=== PATIENT | female | born 1980 | race Caucasian/White ===

== ENCOUNTER 2016-10-04 17:09 | Emergency (ER) | payer OTHER ==
[~2016-10-04] VITALS: Ht 167.6 cm; Wt 80.7 kg
[~2016-10-04 17:09] MED LIST: AUGMENTIN 875 M1 TAB PO; DIFLUCAN150 MG PO
[2016-10-04] MEDS ORDERED: FLORASTOR250 M1 PO (17:56)
[2016-10-04] MEDS ORDERED: CYANOCOBAL1000 MCG/2 IM (17:56)
[2016-10-04] MEDS ORDERED: HUMIRA PEN40 MG/0.8 SC (17:56)
--- NOTE | 2016-10-04 17:56 | ED GENERAL ADULT ---
History of Present Illness General Chief Complaint: Palpitations Stated Complaint: HEARTS RACING, PALPITATIONS Source: patient, old records Exam Limitations: no limitations Vital Signs & Intake/Output Vital Signs & Intake/Output Vital Signs Date Time Temp Pulse Resp B/P Pulse O2 O2 Flow FiO2 Ox Delivery Rate 10/04 2016 98.6 76 18 117/65 99 Room Air 10/04 1755 Room Air 10/04 1722 98.3 94 18 125/86 99 Room Air Allergies Coded Allergies: animal dander (CHEST TIGHTNESS, DYSPNEA, EYES SWELL 10/04/16) Reconcile Medications Adalimumab (Humira Pen) 40 MG/0.8 ML PEN.IJ.KIT 1 SYR SC Q2W CROHNS (Reported ) Alprazolam 0.5 MG TABLET 0.5 TAB PO PRN ANXIETY (Reported) Cholecalciferol (Vitamin D3) (Vitamin D) 2,000 UNIT CAPSULE 1 CAP PO DAILY SUPPLEMENT (Reported) Cyanocobalamin (Vitamin B-12) (Cyanocobalamin Injection) 1,000 MCG/ML VIAL 1 ML IM Q30D SUPPLEMENT (Reported) Montelukast Sodium 10 MG TABLET 1 TAB PO DAILY ALLERGIES (Reported) Ondansetron (Zofran Odt) 4 MG TAB.RAPDIS 1 TAB SL Q8H PRN N/V (Reported) Saccharomyces Boulardii (Florastor) 250 MG CAPSULE 1 CAP PO DAILY PROBIOTIC ( Reported) Triage Note: PT TO TRIAGE WITH C/O PALPITATIONS, DIZZINESS, AND SHAKINESS STARTED 1HR STEEPLECHASE JOCKEY, ALSO PT C/O BURNING TO HER MIDDLE BACK. HX ANXIETY AND CROHN'S. PT TOOK ZANAX WHEN PALPITATIONS STARTED WITH NO RELIF. [facility]. Triage Nurses Notes Reviewed? yes Onset: Gradual Duration: day(s): (1) Timing: recent history Injury Environment: home Severity: moderate No Modifying Factors: none : No Patient currently breastfeeds: No HPI: Patient is a 36 chills female with history of anxiety, palpitations and Crohn's presenting to the emergency department should complaining of palpitations worsening over the past couple hours. She reports that she's had a full cardiac workup in the past for her palpitations and everything comes back negative. She did go out drinking alcohol last night and she does report that this triggers her palpitations. She felt fine this morning and only started later this afternoon. Denies any fevers or chills. No chest pain. She does report diffuse abdominal cramping which is normal for her Crohn's. Denies excessive abdominal pain or diarrhea outside of her normal pain with Crohn's. She takes Humira daily. Denies control use, recent travel or lower extremity pain or edema. Nothing seems to make symptoms better or worse. She does report that she's been eating and drinking okay without difficulty today but feels dehydrated. (YAIMA HUNTER) Past History Travel History Traveled to [place] past 21 day No Medical History Any Pertinent Medical History? see below for history Respiratory: asthma Gastrointestinal: Crohn's disease Psychiatric: anxiety Surgical History Surgical History: non-contributory Psychosocial History What is your primary language Portuguese Tobacco Use: Current Not Daily ETOH Use: occasional use Illicit Drug Use: denies illicit drug use Family History Hx Contributory? No (YAIMA HUNTER) Review of Systems Review of Systems Constitutional: Reports: no symptoms. Comments Review of systems: See HPI, All other systems negative. Constitutional, no chills fever or weight loss HEENT: No visual changes no sore throat no congestion Cardiovascular: No chest pain , orthopnea or ankle swelling Skin, no jaundice no rashes Respiratory: No dyspnea cough sputum or hemoptysis GI: No nausea no vomiting : No dysuria No hematuria Muscle skeletal: no back pain, no neck pain, Neurologic: No numbness no confusion Psych: NO INCREASED STRESS/ANXIETY Immunology: No splenectomy or history of AIDS (YAIMA HUNTER) Physical Exam Physical Exam General Appearance: well developed/nourished, no apparent distress, alert, awake , comfortable Comments: Well-developed well-nourished person in no acute distress HEENT: Pupils equally round and reactive to light and accommodation. Nose is atraumatic. External auditory canal and Tympanic membranes clear. Pharynx normal. No swelling or edema. Neck: Supple, no lymphadenopathy, normal range of motion without pain or tenderness Back: Nontender Cardiovascular: Regular rate and rhythms no murmurs rubs or gallops, normal JVP Respiratory: Chest nontender. No respiratory distress.breath sounds clear to auscultation bilaterally Abdomen: Soft, DIFFSUE TENDERNESS TO PALPATION, nondistended, no appreciable organomegaly. Normal bowel sounds. No ascites, NO REBOUND OR GAURDING. Extremity: No edema, no calf tenderness to palpation, normal and equal pulses. Neuro: Alert oriented x3 Skin: No appreciable rash on exposed skin, skin is warm and dry. Psych: Mood and affect is normal, memory and judgment is normal. Core Measures ACS in differential dx? No CVA/TIA Diagnosis: No Severe Sepsis Present: No Septic Shock Present: No (BERTIN MOTA,YAIMA) Progress Differential Diagnoses I considered the following diagnoses in my evaluation of the patient: Dehydration, electrolyte abnormality, anxiety, thyroid dysfunction,PE, ACS Plan of Care: Orders Procedure Date/time Status Add-on Test (ER Only) 10/04 2004 Active Telemetry/Putty Remover 10/04 1810 Active URINE 10/04 1810 Complete URINALYSIS 10/04 1810 Complete TSH REFLEX 10/04 1810 Complete TROPONIN LEVEL 10/04 1810 Complete ETHANOL 10/04 1810 Complete COMPREHENSIVE METABOLIC PANEL 10/04 1810 Complete CBC WITHOUT DIFFERENTIAL 10/04 1810 Complete EKG 10/04 171 Active Laboratory Tests 10/04/161999: Urine Color YEL, Urine Clarity CLEAR, Urine pH 7.0, Ur Specific [place] 1.020, Urine Protein NEG, Urine Ketones NEG, Urine Nitrite NEG, Urine Bilirubin NEG, Urine Urobilinogen 0.2, Ur Leukocyte Esterase NEG, Ur Microscopic EXAM NOT REQUIRED, Urine Hemoglobin NEG, Urine Glucose NEG, Urine Test NEGATIVE 10/04/16 1847: Anion Gap 10, Estimated GFR > 60, BUN/Creatinine Ratio 12.5, Glucose 86, Calcium 9.4, Total Bilirubin 0.4, AST 14, ALT 23, Alkaline Phosphatase 54, Troponin I < 0.01, Total Protein 7.4, Albumin 4.1, Globulin 3.3, Albumin/Globulin Ratio 1.2, TSH &T3 &Free T4 Intrp 1.230, CBC w Diff NO MAN DIFF REQ, RBC 4.08 L, MCV 86.8, MCH 29.6, RDW 13.3, MPV 9.5, Gran % 63.3, Lymphocytes % 23.2, Monocytes % 9.4 H , Eosinophils % 3.5, Basophils % 0.6, Absolute Granulocytes 5.7, Absolute Lymphocytes 2.1, Absolute Monocytes 0.9 H, Absolute Eosinophils 0.3, Absolute Basophils 0.1, PUBS MCHC 34.1, Serum Alcohol < 10.0 Initial ED EKG: NSR (92) Prior EKG: unchanged Rhythm Strip: normal sinus rhythm Comments: 10/04/2016 6:19:46 PM arrival EKG is normal sinus, patient is well-appearing with diffuse abdominal pain and exam. We'll assess CBC, CMP, troponin, patient likely dehydrated causing palpitations. No obvious cardiac arrhythmia noted on the monitor. Patient feeling much improved with IV hydration, GI cocktail. No longer any abdominal pain on exam. She'll be discharged home, follow with PCP. Patient is afebrile, distress, no longer has abdominal pain on exam. No indication for imaging at this time. She'll follow up with her secretary book keeper. (YAIMA HUNTER) Departure Departure Time of Disposition: 2027 Disposition: HOME OR SELF CARE Condition: Stable Clinical Impression Primary Impression: Palpitations Secondary Impressions: Abdominal pain Qualifiers: Abdominal location: generalized Qualified Code: R10.84 - Generalized abdominal pain Referrals: KAVON HATCH,HENRIQUE Maldonado (PCP/Family) Additional Instructions: Follow-up with your primary care physician and your secretary book keeper. Continue medications at home daily. Increase fluids. Return for worsening symptoms or concerns. Departure Forms: Customer Survey General Discharge Information (YAIMA HUNTER) PA/POWDER MONKEY Co-Sign Statement Statement: ED Attending supervision documentation- [] I saw and evaluated the patient. I have also reviewed all the pertinent lab results and diagnostic results. I agree with the findings and the plan of care as documented in the PA's/POWDER MONKEY's documentation. [x] I have reviewed the ED Record and agree with the PA's/POWDER MONKEY's documentation. [] Additions or exceptions (if any) to the PAs/POWDER MONKEY's note and plan are summarized below: [] (PHILIP HATCH,JORDAN Rodriguez) Critical Care Note Critical Care Note Critical Care Time: non-applicable (YAIMA HUNTER)
[2016-10-04] MEDS ORDERED: VITAMIN D2000 UNIT PO (17:57)
[2016-10-04] MEDS ORDERED: ALPRAZOLAM0.5 M4 PO (17:57)
[2016-10-04] MEDS ORDERED: MONTELUKAST SOD10 M1 PO (17:57)
[2016-10-04] MEDS ORDERED: ZOFRAN ODT4 M1 SL (17:58)
[2016-10-04 19:19] LABS: ABSOLUTE BASOPHIL COUNT 0.1 /CUMM (0.0-0.2); ABSOLUTE EOSINOPHIL COUNT 0.3 /CUMM (0.0-0.7); ABSOLUTE GRANULOCYTE CT 5.7 /CUMM (1.4-6.5); ABSOLUTE LYMPH COUNT 2.1 /CUMM (1.2-3.4); ABSOLUTE MONOCYTE COUNT 0.9 /CUMM (0.10-0.60); BASOPHIL % 0.6 % (0.0-2.0); EOSINOPHIL % 3.5 % (0-5); GRANULOCYTE % 63.3 % (42.2-75.2); HEMATOCRIT 35.4 % (37-47); MEAN CORPUSCULAR HGB 29.6 PG (27.0-31.0); MEAN CORPUSCULAR HGB CONC 34.1 G/DL (33.0-37.0); MEAN CORPUSCULAR VOLUME 86.8 FL (81.0-99.0); MEAN PLATELET VOLUME 9.5 FL (7.4-10.4); PLATELET COUNT 228 /CUMM (130-400); RBC DISTRIBUTION WIDTH 13.3 % (11.5-14.5); RED BLOOD CELL CT 4.08 /CUMM (4.20-5.40); WHITE BLOOD CELL COUNT 9.1 /CUMM (4.8-10.8)
[2016-10-04 20:17] VITALS: BP 117/65
== END 2016-10-04 20:53 ==
LOC: ERH 17:09
PROVIDERS: Physician Assistant
DX: R00.2 Palpitations (principal); R10.9 Unspecified abdominal pain
CPT/HCPCS: 81003; 81025; 93005; 93010; 96374; G0480; J0131